=== PATIENT | male | born 1955 | race Caucasian/White ===

== ENCOUNTER 2017-03-29 11:22 | Inpatient (IN) | payer MEDICAID ==
[~2017-03-29] VITALS: Ht 180.3 cm; Wt 78.9 kg
[2017-03-29 11:22] VITALS: BP_SYST 140
[~2017-03-29 11:22] MED LIST: ASPI-1063 PO; BUDE0.5A4 NEB; COR3.125 PO; FAMO20TA8 PO; FURO-150 PO; IPRA0.2S53 NEB; ISOS20TA8 PO; LORA-258 PO; MUC20RT IH; PRED20TA PO; SIMV20TA2 PO; SPIR100T24 PO
[2017-03-29] MEDS ORDERED: IPRATROPIUM/ALBUTEROL SULFATE 3 ML AMPUL.NEB INH ONE (11:30)
[2017-03-29] MEDS ORDERED: methylPREDNISolone SOD SUCC/PF 62.5 MG/ML VIAL IVP ONE (11:30)
[2017-03-29 11:43] LABS: BASOPHILS # (AUTO) 0.1 K/uL (0.0-0.2); BASOPHILS % (AUTO) 0.6 % (0.0-2.0); EOSINOPHILS # (AUTO) 0.2 K/uL (0.0-0.4); EOSINOPHILS % (AUTO) 1.9 % (0.0-4.0); HEMATOCRIT 37.3 % (36-54); HEMOGLOBIN 11.5 g/dL (14.0-18.0); LYMPHOCYTES # (AUTO) 1.5 K/uL (1.0-5.5); LYMPHOCYTES % (AUTO) 13.5 % (20.5-51.5); MEAN CORPUSCULAR HEMOGLOBIN 26 pg (27-31); MEAN CORPUSCULAR HGB CONC 31 % (32-36); MEAN CORPUSCULAR VOLUME 83 fL (79.0-98.0); MONOCYTES # (AUTO) 0.6 K/uL (0.0-1.0); MONOCYTES % (AUTO) 5.8 % (1.7-9.3); NEUTROPHILS # (AUTO) 8.5 K/uL (1.8-7.7); NEUTROPHILS % (AUTO) 78.2 % (40.0-70.0); PLATELET COUNT (AUTO) 399 K/uL (130-430); RED BLOOD CELL COUNT(AUTO) 4.51 MIL/uL (4.2-6.2); RED CELL DISTRIBUTION WIDTH 16.7 % (9.0-15.0); WHITE BLOOD COUNT (AUTO) 10.9 K/uL (4.8-10.8)
[2017-03-29 11:52] LABS: CALCIUM 9.2 mg/dL (8.4-11.0); CREATININE 1.39 mg/dL (0.55-1.30); POTASSIUM 3.2 mmol/L (3.5-5.1)
[2017-03-29 11:56] LABS: INR 1.3 (0.80-1.20); PROTHROMBIN TIME 13.8 SECS (9.5-12.5)
[2017-03-29 12:12] LABS: ALBUMIN 2.7 g/dL (3.4-4.8); TOTAL BILIRUBIN 0.6 mg/dL (0.0-1.0)
[2017-03-29] MEDS ORDERED: KCL 40 mEq in 100 mL (PREMIX) 100 ML IV ONE (12:30)
[2017-03-29] MEDS ORDERED: FUROSEMIDE 40 MG/4 ML VIAL IVP ONE (12:45)
[2017-03-29] MEDS ORDERED: POTASSIUM CHLORIDE 40 MEQ in NS 250 ML IV ONE (12:45)
[2017-03-29 14:05] VITALS: BP_SYST 139
[2017-03-29 14:32] VITALS: BP_SYST 139
[2017-03-29] MEDS ORDERED: LORazepam 1 MG TABLET PO PRN (15:30)
[2017-03-29] MEDS ORDERED: IPRATROPIUM BROM 0.5 MG/2.5 ML VIAL.NEB (ATROVENT) INH PRN (15:30)
[2017-03-29 16:57] VITALS: BP_SYST 136
[2017-03-29] MEDS: methylPREDNISolone SOD SUCC/PF 62.5 MG/ML VIAL IVP SCH ×2 (17:35→23:54)
[2017-03-29] MEDS: IPRATROPIUM BROM 0.5 MG/2.5 ML VIAL.NEB (ATROVENT) INH SCH (19:42)
[2017-03-29] MEDS: ALBUTEROL SULFATE 0.083% 2.5 MG/3 ML VIAL.NEB INH SCH (19:42)
[2017-03-29] MEDS: ACETYLCYSTEINE 20% 4 ML VIAL (RT) INH SCH (19:43)
[2017-03-29] MEDS: BUDESONIDE 0.5 MG/2 ML AMPUL.NEB INH SCH (19:56)
[2017-03-29 20:00] VITALS: BP_SYST 141
[2017-03-29] MEDS ORDERED: PIPERACILLIN/TAZOBACTAM 3.375 GM/VIAL (ZOSYN) IV ONE (20:20)
[2017-03-29] MEDS: PIPERACILLIN/TAZO 3.375/DEX-IS 50 ML IV SCH ×2 (20:31→23:56)
[2017-03-29] MEDS: SIMVASTATIN 20 MG TABLET PO SCH (22:00)
[2017-03-29] MEDS: FAMOTIDINE 20 MG TABLET PO SCH (22:01)
[2017-03-29] MEDS: FUROSEMIDE 20 MG TABLET PO SCH (22:01)
[2017-03-29] MEDS: CARVEDILOL 3.125 MG TABLET (COREG) PO SCH (22:01)
[2017-03-29] MEDS: ISOSORBIDE DINITRATE 20 MG TABLET (ISORDIL) PO SCH (22:02)
[2017-03-30] VITALS (7 sets, daily range): BP systolic 96–130
[2017-03-30] MEDS: ALBUTEROL SULFATE 0.083% 2.5 MG/3 ML VIAL.NEB INH SCH ×4 (01:23→20:05)
[2017-03-30] MEDS: IPRATROPIUM BROM 0.5 MG/2.5 ML VIAL.NEB (ATROVENT) INH SCH ×4 (01:23→20:05)
[2017-03-30] MEDS: methylPREDNISolone SOD SUCC/PF 62.5 MG/ML VIAL IVP SCH (06:22)
[2017-03-30] MEDS: PIPERACILLIN/TAZO 3.375/DEX-IS 50 ML IV SCH ×4 (06:23→23:14)
[2017-03-30] MEDS: BUDESONIDE 0.5 MG/2 ML AMPUL.NEB INH SCH ×2 (07:00→20:15)
[2017-03-30] MEDS: ACETYLCYSTEINE 20% 4 ML VIAL (RT) INH SCH ×2 (07:00→20:06)
[2017-03-30 07:27] LABS: HEMATOCRIT 34.1 % (36-54); HEMOGLOBIN 11.1 g/dL (14.0-18.0); LYMPHOCYTES # (AUTO) 0.4 K/uL (1.0-5.5); LYMPHOCYTES % (AUTO) 7.7 % (20.5-51.5); MEAN CORPUSCULAR HEMOGLOBIN 27 pg (27-31); MEAN CORPUSCULAR HGB CONC 33 % (32-36); MEAN CORPUSCULAR VOLUME 82 fL (79.0-98.0); MONOCYTES # (AUTO) 0.2 K/uL (0.0-1.0); MONOCYTES % (AUTO) 3.1 % (1.7-9.3); NEUTROPHILS # (AUTO) 4.8 K/uL (1.8-7.7); NEUTROPHILS % (AUTO) 89.2 % (40.0-70.0); PLATELET COUNT (AUTO) 318 K/uL (130-430); RED BLOOD CELL COUNT(AUTO) 4.18 MIL/uL (4.2-6.2); RED CELL DISTRIBUTION WIDTH 16.6 % (9.0-15.0); WHITE BLOOD COUNT (AUTO) 5.4 K/uL (4.8-10.8)
[2017-03-30 08:11] LABS: POTASSIUM 3.7 mmol/L (3.5-5.1)
[2017-03-30 08:12] LABS: ALBUMIN 2.5 g/dL (3.4-4.8); CALCIUM 8.7 mg/dL (8.4-11.0); CREATININE 1.55 mg/dL (0.55-1.30); TOTAL BILIRUBIN 0.7 mg/dL (0.0-1.0)
[2017-03-30] MEDS: ASPIRIN 81 MG TABLET(ECOTRIN) PO SCH (10:08)
[2017-03-30] MEDS: FAMOTIDINE 20 MG TABLET PO SCH ×2 (10:08→21:13)
[2017-03-30] MEDS: SPIRONOLACTONE 50 MG TABLET (ALDACTONE) PO SCH (10:10)
[2017-03-30] MEDS: FUROSEMIDE 20 MG TABLET PO SCH ×2 (10:11→21:13)
[2017-03-30] MEDS: ISOSORBIDE DINITRATE 20 MG TABLET (ISORDIL) PO SCH ×3 (10:11→21:13)
[2017-03-30] MEDS: ENOXAPARIN SODIUM 40 MG/0.4 ML SYRINGE SUBCUT SCH (10:11)
[2017-03-30] MEDS: CARVEDILOL 3.125 MG TABLET (COREG) PO SCH ×2 (10:13→21:13)
[2017-03-30] MEDS: methylPREDNISolone SOD SUCC 40 MG/ML VIAL IVP SCH ×2 (16:06→21:12)
[2017-03-30] MEDS: SIMVASTATIN 20 MG TABLET PO SCH (21:13)
[2017-03-31] VITALS: BP_SYST 126
[2017-03-31] MEDS: IPRATROPIUM BROM 0.5 MG/2.5 ML VIAL.NEB (ATROVENT) INH SCH ×4 (00:18→20:59)
[2017-03-31] MEDS: ALBUTEROL SULFATE 0.083% 2.5 MG/3 ML VIAL.NEB INH SCH ×4 (00:18→20:59)
[2017-03-31 04:00] VITALS: BP_SYST 138
[2017-03-31] MEDS: PIPERACILLIN/TAZO 3.375/DEX-IS 50 ML IV SCH ×3 (05:16→17:34)
[2017-03-31] MEDS: methylPREDNISolone SOD SUCC 40 MG/ML VIAL IVP SCH (05:18)
[2017-03-31 07:41] LABS: EOSINOPHILS % (AUTO) 0.1 % (0.0-4.0); HEMATOCRIT 34.9 % (36-54); LYMPHOCYTES # (AUTO) 0.4 K/uL (1.0-5.5); LYMPHOCYTES % (AUTO) 4.3 % (20.5-51.5); MEAN CORPUSCULAR HEMOGLOBIN 26 pg (27-31); MEAN CORPUSCULAR HGB CONC 32 % (32-36); MEAN CORPUSCULAR VOLUME 82 fL (79.0-98.0); MONOCYTES # (AUTO) 0.4 K/uL (0.0-1.0); MONOCYTES % (AUTO) 4.4 % (1.7-9.3); NEUTROPHILS # (AUTO) 7.8 K/uL (1.8-7.7); NEUTROPHILS % (AUTO) 91.2 % (40.0-70.0); PLATELET COUNT (AUTO) 348 K/uL (130-430); RED BLOOD CELL COUNT(AUTO) 4.26 MIL/uL (4.2-6.2); RED CELL DISTRIBUTION WIDTH 15.9 % (9.0-15.0)
[2017-03-31 07:48] LABS: WHITE BLOOD COUNT (AUTO) 8.6 K/uL (4.8-10.8)
[2017-03-31 08:00] VITALS: BP_SYST 125
[2017-03-31 08:01] LABS: ALANINE AMINOTRANSFERASE 220 U/L (12-78); ALBUMIN 2.5 g/dL (3.4-4.8); ASPARTATE AMINOTRANSFERASE 28 U/L (10-37); CALCIUM 8.7 mg/dL (8.4-11.0); CHLORIDE 96 mmol/L (98-107); CREATININE 1.36 mg/dL (0.55-1.30); GLUCOSE 116 mg/dL (70-99); POTASSIUM 3.4 mmol/L (3.5-5.1); SODIUM SERUM 140 mmol/L (136-145); TOTAL BILIRUBIN 0.7 mg/dL (0.0-1.0); UREA NITROGEN, BLOOD 36 mg/dL (8-21)
[2017-03-31] MEDS: BUDESONIDE 0.5 MG/2 ML AMPUL.NEB INH SCH ×2 (08:06→21:38)
[2017-03-31] MEDS: ACETYLCYSTEINE 20% 4 ML VIAL (RT) INH SCH ×2 (08:07→21:03)
[2017-03-31 08:15] LABS: ANION GAP < 3 (5-15); GFR AFRICAN AMERICAN 68 mL/min (>90)
[2017-03-31] MEDS: SPIRONOLACTONE 50 MG TABLET (ALDACTONE) PO SCH (09:32)
[2017-03-31] MEDS: ENOXAPARIN SODIUM 40 MG/0.4 ML SYRINGE SUBCUT SCH (09:32)
[2017-03-31] MEDS: ASPIRIN 81 MG TABLET(ECOTRIN) PO SCH (09:33)
[2017-03-31] MEDS: FUROSEMIDE 20 MG TABLET PO SCH ×2 (09:33→21:36)
[2017-03-31] MEDS: ISOSORBIDE DINITRATE 20 MG TABLET (ISORDIL) PO SCH ×3 (09:33→21:35)
[2017-03-31] MEDS: FAMOTIDINE 20 MG TABLET PO SCH ×2 (09:33→21:34)
[2017-03-31] MEDS: CARVEDILOL 3.125 MG TABLET (COREG) PO SCH ×2 (09:34→21:36)
[2017-03-31] MEDS ORDERED: POTASSIUM CHLORIDE 20 MEQ TAB.PRT.SR PO ONE (11:00)
[2017-03-31 13:15] VITALS: BP_SYST 124
[2017-03-31 17:19] VITALS: BP_SYST 133
[2017-03-31 19:50] VITALS: BP_SYST 110
[2017-03-31] MEDS: PREDNISONE 20 MG TABLET PO SCH (21:35)
[2017-03-31] MEDS: SIMVASTATIN 20 MG TABLET PO SCH (21:36)
[2017-04-01 00:58] VITALS: BP_SYST 114
[2017-04-01] MEDS: IPRATROPIUM BROM 0.5 MG/2.5 ML VIAL.NEB (ATROVENT) INH SCH ×3 (01:03→13:27)
[2017-04-01] MEDS: ALBUTEROL SULFATE 0.083% 2.5 MG/3 ML VIAL.NEB INH SCH ×3 (01:03→13:27)
[2017-04-01] MEDS: PIPERACILLIN/TAZO 3.375/DEX-IS 50 ML IV SCH ×3 (01:22→12:05)
[2017-04-01 04:53] VITALS: BP_SYST 117
[2017-04-01] MEDS: ACETYLCYSTEINE 20% 4 ML VIAL (RT) INH SCH (08:50)
[2017-04-01] MEDS: BUDESONIDE 0.5 MG/2 ML AMPUL.NEB INH SCH (08:50)
[2017-04-01] MEDS ORDERED: POTASSIUM CHLORIDE 20 MEQ TAB.PRT.SR PO ONE (11:00)
[2017-04-01] MEDS: FAMOTIDINE 20 MG TABLET PO SCH (11:12)
[2017-04-01] MEDS: FUROSEMIDE 20 MG TABLET PO SCH (11:12)
[2017-04-01] MEDS: CARVEDILOL 3.125 MG TABLET (COREG) PO SCH (11:13)
[2017-04-01] MEDS: ASPIRIN 81 MG TABLET(ECOTRIN) PO SCH (11:13)
[2017-04-01] MEDS: ENOXAPARIN SODIUM 40 MG/0.4 ML SYRINGE SUBCUT SCH (11:14)
[2017-04-01] MEDS: PREDNISONE 20 MG TABLET PO SCH (11:27)
[2017-04-01] MEDS: ISOSORBIDE DINITRATE 20 MG TABLET (ISORDIL) PO SCH ×2 (11:27→16:06)
[2017-04-01] MEDS: SPIRONOLACTONE 50 MG TABLET (ALDACTONE) PO SCH (11:28)
[2017-04-01 12:02] VITALS: BP_SYST 111
[2017-04-01 16:03] VITALS: BP_SYST 125
[2017-04-01 17:38] VITALS: BP_SYST 105
[2017-04-01 17:45] VITALS: BP_SYST 111
== END 2017-04-01 18:33 | DRG 131 ==
LOC: SED 11:22 → STU 12:41
PROVIDERS: ADMIT Family Medicine; ATTEND Family Medicine
PROC: 5A09357 Assistance with Respiratory Ventilation, Less than 24 Consecutive Hours, Continuous Positive Airway Pressure (ICD-10-PCS; principal; 2017-03-29)
DX: J44.0 Chronic obstructive pulmonary disease with (acute) lower respiratory infection (principal); E84.9 Cystic fibrosis, unspecified; J96.21 Acute and chronic respiratory failure with hypoxia; I50.33 Acute on chronic diastolic (congestive) heart failure; J18.1 Lobar pneumonia, unspecified organism; L03.115 Cellulitis of right lower limb; L03.116 Cellulitis of left lower limb; N18.3 Chronic kidney disease, stage 3 (moderate); Q24.0 Dextrocardia; Z99.81 Dependence on supplemental oxygen; E87.6 Hypokalemia; J44.1 Chronic obstructive pulmonary disease with (acute) exacerbation; J96.22 Acute and chronic respiratory failure with hypercapnia; E78.5 Hyperlipidemia, unspecified; I87.8 Other specified disorders of veins; Z91.018 Allergy to other foods; Z79.82 Long term (current) use of aspirin; Z79.899 Other long term (current) drug therapy
CPT/HCPCS: 36415; 36600; 71010; 71250-TC; 80053; 82803-TC; 83605; 83880; 84484; 85025; 85610-TC; 85730-TC; 87040-TC; 87081; 93005; 93306; 93970; 94640; 94660; 94760; 96365; 96366; 96375; 99291; J1030; J1650; J1940; J2543; J2930; J3480; J7040; J7050; J7060; J7512